=== PATIENT | male | born 1960 | race Caucasian/White ===

== ENCOUNTER 2019-06-13 19:40 | Inpatient (IN) | payer SELFPAY ==
[~2019-06-13] VITALS: Ht 182.9 cm; Wt 122.6 kg
--- NOTE | 2019-06-13 19:48 | NUR ---
EKG IN PROGRESS IN TRIAGE
--- NOTE | 2019-06-13 19:59 | NUR ---
MD SCHILLING AT BEDSIDE FOR MSE
--- NOTE | 2019-06-13 20:01 | NUR ---
PT PRESENTS TO ED WITH DAUGHTER FOR C/O CHEST PAIN AND SOB. PT STSATES HE HAS HAD THIS CHEST PRESSURE FOR 1 MONTH. PT STATES THAT OVER LAST WEEK THE SOB HAS PROGRESSED WORSE AND HE HAS NEEDED TO SLEEP SITTING UPRIGHT IN A CHAIR IN ORDER TO BREATHE AND SLEEP. PT DENEIS EVER GOING TO THE DR SINCE HE WAS A LITTLE BOY. PT STATES HE HAS SMOKED A PACK OF CIGARETTES A DAY FOR THE LAST 50 YEARS. PT IS SPEAKING IN SHORT 2 TO 3 WORD SENTENCES. PT IS PALE AND DIAPHORETIC WITH ABNORMAL EKG CHANGES PER MD SCHILLING. PT HAS PITTING EDEMA TO BLLE. PT HAS CRACKLES IN BL BASES OF LUNGS. PT AXO X 4. DAUGHTER AT BEDESIDE. PT COMPLAINING OF CHEST PRESSURE 4/10.
--- NOTE | 2019-06-13 20:13 | NUR ---
PT ALSO COMPLAINING OF GENERALIZED WEAKNESS PT STATES " I FEEL LIKE I AM SO WEAK". 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 CALL LIGHT WITHIN REACH. RT HAS BEEN CALLED FOR BREATHING TX.
--- NOTE | 2019-06-13 20:22 | NUR ---
RT AT BEDSIDE FOR BREATHING TX AND ABG
[2019-06-13 20:31] LABS: BASOPHIL % 0.7 % (0-2); PLATELET COUNT 219 x10^3mcL (130-400); RED CELL DISTRIBUTION WIDTH 14.5 % (11.5-14.5)
[2019-06-13 20:44] LABS: CALCIUM 8.8 mg/dL (8.5-10.1); CARBON DIOXIDE 27.2 mmol/L (21-32); CHLORIDE SERUM 108 mmol/L (98-107); CREATININE SERUM 0.8 mg/dL (0.7-1.3); GFR1 > 60 mL/min; GLUCOSE SERUM 146 mg/dL (74-106); POTASSIUM SERUM 4.4 mmol/L (3.5-5.1); SODIUM SERUM 143 mmol/L (136-145)
[2019-06-13 20:49] LABS: ALKALINE PHOSPHATASE 72 U/L (46-116); ALT/SGPT 36 U/L (16-63); AST/SGOT 19 U/L (15-37); BILIRUBIN TOTAL 1.1 mg/dL (0.20-1.00); TOTAL PROTEIN, SERUM 7.2 g/dL (6.4-8.2)
[2019-06-13 20:50] LABS: ALBUMIN 3.2 g/dL (3.4-5.0)
--- NOTE | 2019-06-13 21:01 | NUR ---
PT STATES THAT HE FEELS MILD RELIEF AFTER BRETHING TX IS COMPLETED
--- NOTE | 2019-06-13 21:12 | NUR ---
MD SCHILLING DISCUSSING PLAN OF CARE WITH PT
--- NOTE | 2019-06-13 21:20 | NUR ---
PT NC INCREASED TO 4L DUE TO PT O2 SAT AT 94% ON 2L
--- NOTE | 2019-06-13 22:20 | NUR ---
RECEIVED REPORT FROM SANDI CHICAS FROM ED, ALL QUESTIONS AND CONCERNS ADDRESSED.
--- NOTE | 2019-06-13 22:22 | NUR ---
REPORT GIVEN TO DEREK JUNIOR TO RESUME CARE OF PT
--- NOTE | 2019-06-13 22:26 | NUR ---
PT HAD 750CC VOID POST LASIX ADMINISTRATION
--- NOTE | 2019-06-13 22:30 | NUR ---
RECEIVED PT VIA [facility] FROM E/D, ACCOMPANIED BY RN, TRANSPORTER, AND PT'S SON, ZEN RICCI. PT A/A/O X 4, CALM, COOPERATIVE. AMBULATORY, NO GAIT OR BALANCE IMPAIRMENT NOTED WALKING FROM [facility] TO BED. ON TELE # 4, HR 65, SR W/ BBB+PAC+INVERTED T-WAVES. BUL CLEAR, BLL DIM, CHEST RISING EVENLY, SHALLOW-BREATHING, R/A, 93%; C/O INTERMITTENT SHARP MID-STERNAL C/P THAT RADIATES TO L ARM 2/10. ABD SOFT, ROUND, NON-TENDER, NORMOACTIVE BOWEL SOUNDS X 4 QUADS, LAST BM 06/13/19, FORMED, ON ASPIRATION PRECAUTIONS (EPISODES OF CHOKING W/ FOOD). IV SITE LAC 20G, CDI. ORIENTED PT AND SON TO ROOM, BED CONTROLS, CALL LIGHT SYSTEM. SIDE RAILS UP X 2, BED IN LOW POSITION. WILL ENDORSE TO SANDI REED.
--- NOTE | 2019-06-13 22:30 | NUR ---
PT ARRIVED TO DEPT AT THIS FROM ED VIA NU WITH RN AND EMT. PT BROUGHT TO RM 209 BED B
[2019-06-13 22:37] LABS: FREE T4 1.08 ng/dL (0.76-1.46); FREE THYROXINE INDEX 2.1 ug/dL (1.4-4.5); T3 TOTAL 1.07 ng/mL; T4(THYROXINE) 5.7 ug/dL (4.7-13.3)
[2019-06-13 22:59] LABS: MAGNESIUM 1.8 mg/dL (1.8-2.4); PHOSPHOROUS 3.8 mg/dL (2.5-4.9)
[2019-06-13 23:00] LABS: CHOLESTEROL/HDL RATIO 5.3
[2019-06-13 23:14] VITALS: BP 130/100
[2019-06-13 23:32] VITALS: BP 130/100
[2019-06-13 23:44] LABS: microscopic required? NO
[2019-06-14 00:04] LABS: urine erythrocyte NEGATIVE (NEGATIVE)
[2019-06-14 00:27] LABS: AMPHETAMINE QUAL UR NONE DETECTED (See below)
--- NOTE | 2019-06-14 02:40 | NUR ---
lab at bedside for blood draw
[2019-06-14 06:03] VITALS: BP 121/64
[2019-06-14 06:16] LABS: PLATELET COUNT 225 x10^3mcL (130-400)
[2019-06-14 06:20] LABS: CALCIUM 8.8 mg/dL (8.5-10.1); CARBON DIOXIDE 25.2 mmol/L (21-32); CHLORIDE SERUM 105 mmol/L (98-107); CREATININE SERUM 0.8 mg/dL (0.7-1.3); GFR1 > 60 mL/min; GLUCOSE SERUM 194 mg/dL (74-106); MAGNESIUM 1.7 mg/dL (1.8-2.4); PHOSPHOROUS 3.1 mg/dL (2.5-4.9); POTASSIUM SERUM 3.8 mmol/L (3.5-5.1); SODIUM SERUM 140 mmol/L (136-145)
[2019-06-14 07:14] LABS: BASOPHIL % 0 % (0-2); RED CELL DISTRIBUTION WIDTH 14.6 % (11.5-14.5)
--- NOTE | 2019-06-14 08:00 | NUR ---
ALERT AND ORIENTED. ON RA. GETS SLIGHTLY SOB WITH LITTLE EXERTION. ON RA. DENIES ANY PAIN CHEST OR OTHERWISE. INDEPENDENT W ADL'S. AMBULATORY, BRP. GOOD APPETITE. NO PROBLEMS WITH FOOD THIS AM. TELE # 4 SR W BBB,PAC INVERTED T WAVE. CONSULT ORDER FOR DR. CUMMINGS. CALL LIGHT WITHIN REACH.
[2019-06-14 08:26] VITALS: BP 140/71
[2019-06-14 12:19] VITALS: BP 140/74
[2019-06-14 17:09] VITALS: BP 140/71
--- NOTE | 2019-06-14 18:47 | NUR ---
ALERT ND OIENTED. VISITED WITH FAMILY MOST OF THE SHIFT. SAYS HE IS BREATHING MOR FREELY AFTER RECEIVING LASIX AND RESP CARE. [facility] SE[facility] BY DR. CUMMINGS TODAY. VSS. INDEPENDENT W ADL'S. ON RA. CALL LIGHT WITHIN REACH.
--- NOTE | 2019-06-14 19:20 | NUR ---
PATIENT RECEIVED IN BED VIA BEDSIDE HANDS OFF SPEAKING TO FAMILY MEMBER. PATIENT IS ORIENTED X4, DENIED DIZZINESS, FERREIRA. BREATHING EVEN AND UNLABORED CLAIMED MILD SOB ON EXERTION, OCC DRY COUGH, BS FINE CRACKLES BASES, FOUND ON ROOM AIR SAT 98%. DENIES CHEST PAINS, HR=77BPM, TELE#4 SR W/ BBB W/ OCC PAC'S. HEPLOCK SITE CLEAR, TAPE SECURED. PATIENT AMBULATORY WITH STEADY GAIT, STATES GET FATIGUE AT TIMES. VOIDS FREELY,DENIED PAIN UPON URINATION. NO EDEMA NOTED. PATIENT AND FAMILY INFORMED ABOUT POC THIS SHIFT. CALL LIGHT IN REACH. SAFETY PREC. OBSERVED AND MAINTAINED. WILL CONTINUE TO MONITOR.
[2019-06-14 20:00] VITALS: BP 147/69
--- NOTE | 2019-06-14 20:59 | NUR ---
SCHEDULED MEDS ADMINISTERED, PATIENT INFORMED ABOUT EACH MEDS ACTIONS AND PURPOSES PRIOR. PATIENT TOOK PILLS WELL.
[2019-06-14 21:55] LABS: CALCIUM 8.4 mg/dL (8.5-10.1); CARBON DIOXIDE 25.3 mmol/L (21-32); CHLORIDE SERUM 99 mmol/L (98-107); CREATININE SERUM 1.1 mg/dL (0.7-1.3); GFR1 > 60 mL/min; GLUCOSE SERUM 368 mg/dL (74-106); POTASSIUM SERUM 3.7 mmol/L (3.5-5.1); SODIUM SERUM 135 mmol/L (136-145)
[2019-06-14 21:57] LABS: PLATELET COUNT 235 x10^3mcL (130-400); RED CELL DISTRIBUTION WIDTH 14.6 % (11.5-14.5)
[2019-06-14 22:06] LABS: BAND NEUTROPHIL 3 % (0-10); BASOPHIL 0 % (0-2); MONOCYTE 2 % (0-7); SEGMENTED NEUTROPHILS 90 % (37-75); rbc morphology (normal/abnorm) NORMAL (NORMAL)
--- NOTE | 2019-06-14 23:30 | NUR ---
SCHED SOLUMEDROL ADMINISTERED IVP, PT WA SLEEPING QUIETLY AND COMFORTABLY PRIOR TO ADMINISTRATION AWAKEN WHEN NAME CALLED, INFORMED OF MED GIVING. NO RESP. DISTRESS. SAFETY MAINTAINED WILL CONTINUE TO MONITOR.
--- NOTE | 2019-06-15 03:00 | NUR ---
SLEEPING COMFORTABLY THIS TIME NO DISTRESS. WILL CONTINUE TO MONITOR.
--- NOTE | 2019-06-15 05:38 | NUR ---
PATIENT SLEPT WELL AND RESTED GOOD DURING THE SHIFT, NO RESP. DISTRESS ENCOUNTERED, ON ROOM AIR TOLERATED WELL. DENIED CFHEST PAINNS. AMBULATORY TO THE BATHROOM WITH STEADY GAIT, VOIDED WITHOUT DIFF. HEPLOCK FLUSHED WELL, TAPE SECURED. SAFETY PREC OBSERVED AND MAINTAINED. WILL ENDORSE CONTINUITY OF CARE TO INCOMING NURSE.
[2019-06-15 06:19] LABS: BASOPHIL % 0.1 % (0-2); PLATELET COUNT 219 x10^3mcL (130-400)
[2019-06-15 06:31] LABS: CALCIUM 8.2 mg/dL (8.5-10.1); CARBON DIOXIDE 27.5 mmol/L (21-32); CHLORIDE SERUM 103 mmol/L (98-107); CREATININE SERUM 0.8 mg/dL (0.7-1.3); GFR1 > 60 mL/min; GLUCOSE SERUM 257 mg/dL (74-106); MAGNESIUM 1.9 mg/dL (1.8-2.4); POTASSIUM SERUM 4.1 mmol/L (3.5-5.1); SODIUM SERUM 139 mmol/L (136-145)
[2019-06-15 07:18] VITALS: BP 142/78
--- NOTE | 2019-06-15 07:49 | NUR ---
BEDSIDE HANDS OFF AND INTRODUCTION PERFORMED WITH INCOMING NURSE LEEANNE-RN.
--- NOTE | 2019-06-15 08:00 | NUR ---
ALERT AND ORIENTED. RESPIRATIONS SHALLOW AND SLIGHTLY LABORED. DENIES PAIN AT THIS TIME. SL TO LEFT AC PATENT. TELE # 4 SR W PAC'S AND DEPRESSED T WAVE. INDEPENDENT W ADL'S. CALL LIGHT WITHIN REACH.
[2019-06-15 08:09] LABS: RED CELL DISTRIBUTION WIDTH 14.9 % (11.5-14.5)
[2019-06-15 08:13] VITALS: BP 140/76
[2019-06-15 08:15] VITALS: BP 123/77
[2019-06-15 11:32] VITALS: BP 114/66
[2019-06-15] MEDS ORDERED: ZES10 PO (14:34)
[2019-06-15] MEDS ORDERED: COR3 PO (14:35)
--- NOTE | 2019-06-15 15:32 | NUR ---
Initial Nutrition Assessment: /B ZEN RICCI IA HR Dx: CP, CHF PMHx: No significant PMH PSHx: none Labs: BG 257H, A1C 6.4H, WBC 23.1H Meds: Colace, lactinex, Lasix, Lipitor, pulmicort, zofran Diet: Cardiac PO Intake: (06/14) 100% all meals Ht: 182.88 cm (72") Wt: 124.7 kg (274#) BMI: 37.3 kg/m2 Bed scale: 120 kg IBW: 178# (81 kg) %IBW: 154 UBW: 120-125 kg Age: 58/M Food Allergies: NKFA Skin: intact Wood: 22 Edema: none GI: Last BM: 06/14 Per H&P, Pt is a 58 yoM with no significant PMH and a smoking history of 1 pack of cigarettes per day since the age of 9, who came with a cc of SOB since 3-4 months which has worsened in the past week. RDN Visit (06/15): Patient was alert and oriented and said that his appetite is good and he was able to finish all of his breakfast and lunch today. FNS received consult for borderline DM, new Dx HTN, acute CHF, Obesity II on 06/14. Patient seemed to be a little disinterested in listening to dietary education. Discussed recommendations with Dr. Genao. Problem with: N/V/D/C: no Problems with: Chewing/Swallowing: none Current appetite: good Recent wt change: none %wt change: N/A Vitamin/Supplement use: none Special diet at home: regular Physical activity: none Nutrition education given: Cardiac diet education was provided. Concepts like high fiber diet was discussed. Patient seemed reluctant to make any diet/lifestyle related change. Food-drug interactions: Lasix- increase K, Mg intake Education given: no Estimated Nutritional Needs Based on ideal body weight 81 kg Energy: 5028-8199 kcal/d (25-30 kcal/kg) Protein: 81- 97 g/d (1.0-1.2 g/kg)- preserve LBM Fluid: 0124-5801 ml/d (1 ml/kcal) or per doctor Nutrition Diagnosis 1. Altered nutrition related lab- values related to endocrine and cardiac dysfunction as evidenced by A1C: 6.4, BG 257H Intervention 1. Recommend [facility] diet. Monitor/Evaluate Goal: PO intake at least 75% of estimated needs Monitor: PO intake, Labs, GI function F/U in 7 days as low risk 06/22
--- NOTE | 2019-06-15 15:32 | NUR ---
1. Recommend Cardiac ([facility]) diet.
[2019-06-15 15:44] VITALS: BP 135/69
--- NOTE | 2019-06-15 18:55 | NUR ---
SITTING UP IN BED VISITING WITH FAMILY. 95% SAT ON RA. DENIES ANY PAIN AT THIS TIME. CONTINUES ON LEVAQUIN IV ABX. INDEPENDENT W ADL'S. INFORMED RESIDENT OF BLOOD PRESSURE 90/59 AFTER RECEIVING NITRO PASTE, 120/70 PRIOR. REMOVED PATCH.
--- NOTE | 2019-06-15 19:40 | NUR ---
PT SEEN, RESTING IN BED, ALERT AND ORIENTED X 4 AND VERY VERBALLY RESPONSIVE, DENIES HEADACHE OR DIZZINESS, BREATHING EVEN AND UNLABORED, LUNG SOUNDS DIMINISHED, ON ROOM AIR WITH NO RESP DISTRESS NOTED, SOB ON EXERTION, ON AND OFF DRY COUGH, SL TO LAC, PULSES PALPABLE, NO EDEMA NOTED, ON TELE#4 NSR WITH BBB AND OCC PAC'S AND PVC'S, DENIES CHEST PAIN, AMBULATORY WITH STEADY GAIT, ABD SOFT WITH ACTIVE BS, NO BM AT THIS TIME, DENIES ABD PAIN, VOIDING FREELY, NO DISTRESS NOTED, WILL KEEP TO MONITOR.
[2019-06-15 20:05] VITALS: BP 137/67
[2019-06-15 21:38] VITALS: Ht 182.9 cm; Wt 122.6 kg
--- NOTE | 2019-06-16 00:15 | NUR ---
ALL DUE MEDS GIVEN, PT ASLEEP BUT EASILY AROUSABLE, BREATHING EVEN AND UNLABORED ON ROOM AIR WITH NO RESP DISTRESS NOTED, WILL KEEP TO MONITOR.
[2019-06-16 01:45] VITALS: BP 134/78
--- NOTE | 2019-06-16 01:45 | NUR ---
PT HAD RUN OF V-TACH FOR 18 SECS, PT ASLEEP BUT EASILY AROUSABLE, DENIES CHEST PAIN OR CHEST DISCOMFORT, PT'S VITAL SIGN- HR:75, BP:134/78(97), RR:18, SPO2:89% ON ROOM AIR, APPLIED OXYGEN 2 LITERS VIA NC AND PT'S SPO2:94%, DR SUDHAKAR CADENA.
--- NOTE | 2019-06-16 02:30 | NUR ---
DR GOOD MADE AWARE, NO NEW ORDER RECEIVED.
[2019-06-16 05:45] LABS: CALCIUM 8.9 mg/dL (8.5-10.1); CARBON DIOXIDE 28.2 mmol/L (21-32); CHLORIDE SERUM 101 mmol/L (98-107); GFR1 > 60 mL/min; GLUCOSE SERUM 347 mg/dL (74-106); MAGNESIUM 1.9 mg/dL (1.8-2.4); PHOSPHOROUS 4.3 mg/dL (2.5-4.9); POTASSIUM SERUM 4.3 mmol/L (3.5-5.1); SODIUM SERUM 137 mmol/L (136-145)
--- NOTE | 2019-06-16 05:46 | NUR ---
PT AWAKE AND RESTING IN BED, SLEPT MOST OF NIGHT, ON TELE#4 NSR WITH BBB AND OCC PAC'S, DENIES CHEST PAIN OR CHEST DISCOMFORT, ON O2 2L VIA NC WITH SPO2:96%, C/O OF HEADACHE THIS MORNING, TYLENOL 650MG VIA ORAL ADMINISTERED, NO DISTRESS NOTED, WILL KEEP TO MONITOR.
[2019-06-16 06:14] VITALS: BP 131/74
[2019-06-16 06:20] LABS: PLATELET COUNT 252 x10^3mcL (130-400)
--- NOTE | 2019-06-16 07:10 | NUR ---
RECEIVED BEDSIDE REPORT FROM OUT PATIENT THERAPIST NURSE AT THIS TIME. PATIENT RESTING COMFORTABLY IN BED. NO APPARENT DISTRESS OR DISCOMFORT NOTED. 2L NC IN PLACE AND PATIENT TOLERATING WELL. PATIENT DENIES SHORTNESS OF BREATH. PATIENT DENIES CHEST PAIN/PRESSURE AT THIS TIME. IV PATENT AND INTACT. ALL QUESTIONS AND CONCERNS ADDRESSED. ALL NEEDS ATTENDED TO. WILL CONTINUE TO MONITOR
--- NOTE | 2019-06-16 07:22 | NUR ---
BEDSIDE HANDOFF REPORT DONE WITH GET, ALL QUESTIONS ANSWERED AND CONCERNS ADDRESSED.
[2019-06-16 07:32] LABS: RED CELL DISTRIBUTION WIDTH 14.9 % (11.5-14.5)
[2019-06-16 09:36] VITALS: BP 143/73
--- NOTE | 2019-06-16 10:09 | NUR ---
ALL MORNING MEDICATIONS ADMINISTERED. PATIENT TOLERATED WELL. NO ADVERSE EFFECTS NOTED. ALL NEEDS ATTENDED TO. WILL CONTINUE TO MONITOR
[2019-06-16] MEDS ORDERED: ECO81 PO (11:57)
[2019-06-16] MEDS ORDERED: LASIX20 MG PO (11:57)
[2019-06-16 12:15] LABS: BAND NEUTROPHIL 0 % (0-10); BASOPHIL 0 % (0-2); MONOCYTE 1 % (0-7); SEGMENTED NEUTROPHILS 98 % (37-75)
[2019-06-16 12:17] LABS: PLATELET MORPHOLOGY PLATELETS DECREASED; rbc morphology (normal/abnorm) ABNORMAL (NORMAL)
--- NOTE | 2019-06-16 12:37 | NUR ---
CALLED THE RESIDENT CALL PHONE AT THIS TIME AND SPOKE TO DR RENAE SAYED TO REMIND THE RESIDENT PATIENT WBC 27.6 AND REGARDING DISCHARGE INSTRUCTIONS. SPOKE TO DR DELGADO WELL REGARDING DISCHARGE TO HOME WITH A WBC OF 27.6. PER DR DELGADO, OKAY TO DISCHARGE PATIENT WITH WBC OF 27.6 BECAUSE PATIENT IS ON STEROID, SOLU-MEDROL. AWAITING CALL BACK FROM RESIDENTS AT THIS TIME. ALL QUESTIONS AND CONCERNS ADDRESSED. ALL NEEDS ATTENDED TO. WILL CONTINUE TO MONITOR
--- NOTE | 2019-06-16 12:50 | NUR ---
PATIENT SITTING UP IN BED EATING LUNCH AT THIS TIME. PATIENT TOLERATING DIET WELL. NO APPARENT DISTRESS OR DISCOMFORT NOTED. ALL NEEDS ATTENDED TO. WILL CONTINUE TO MONITOR
--- NOTE | 2019-06-16 13:06 | NUR ---
SPOKE TO DR DELGADILLO AT THIS TIME REGARDING DISCHARGE. PER DR DELGADILLO, OKAY TO DISCHARGE PATIENT HOME. INFORMED DR DELGADILLO PATIENT IS OFF 2L O2 AND O2 96% ON ROOM AIR. AWAITING PRESCRIPTIONS FROM AT THIS TIME TO BE ABLE TO DISCHARGE PATIENT HOME. ALL NEEDS ATTENDED TO. WILL CONTINUE TO MONITOR
[2019-06-16 13:15] VITALS: BP 152/99
[2019-06-16 13:50] VITALS: BP 124/68
--- NOTE | 2019-06-16 14:30 | NUR ---
PATIENT STABLE TO BE DISCHARGED TO HOME. DISCHARGE INSTRUCTIONS GIVEN WELL EDUCATION. INSTRUCTED PATIENT ABOUT FOLLOW UP APPOINTMENT. PATIENT VERBALIZES UNDERSTANDING. IV REMOVED WITH CATH INTACT. ID BANDS REMOVED. TELE MONITOR REMOVED AND RETURNED TO RN MATERNITY. ALL BELONGINGS WITH PATIENT. ALL QUESTIONS AND CONCERNS ADDRESSED. ALL NEEDS ATTENDED TO. PATIENT ESCORTED DOWN TO LOBBY BY DAYANARA AT THIS TIME
== END 2019-06-16 14:35 | disposition home or self-care (01) | DRG 291 ==
LOC: ED 19:40 → DU 21:39
PROVIDERS: Emergency Medicine; Internal Medicine; ADMIT Internal Medicine
DX: I11.0 Hypertensive heart disease with heart failure (principal); J96.01 Acute respiratory failure with hypoxia; I50.21 Acute systolic (congestive) heart failure; E44.0 Moderate protein-calorie malnutrition; J44.1 Chronic obstructive pulmonary disease with (acute) exacerbation; F17.210 Nicotine dependence, cigarettes, uncomplicated; E66.01 Morbid (severe) obesity due to excess calories; E02 Subclinical iodine-deficiency hypothyroidism; I42.9 Cardiomyopathy, unspecified; Z68.37 Body mass index [BMI] 37.0-37.9, adult; Z88.0 Allergy status to penicillin; Z82.49 Family history of ischemic heart disease and other diseases of the circulatory system
CPT/HCPCS: 36600; 83880; 84439; G0378; J1940; J1956; J2920; J2930; J7030; J7613; J7620; J7626; J7644; Q0092